=== PATIENT | female | born 1970 | race Caucasian/White ===

== ENCOUNTER 2017-05-04 02:31 | Emergency (ER) | payer BC ==
[~2017-05-04] VITALS: Ht 162.6 cm; Wt 55.9 kg
[2017-05-04 02:38] VITALS: TEMP 98.4
[2017-05-04] MEDS ORDERED: ALLERGY MED (02:42)
[2017-05-04 02:57] LABS: BASO # 0.1 (0.0-0.2); BASO % 1.4 % (0.0-2.0); EOS # 0.3 (0.0-0.7); EOS % 3.8 % (0-4.0); GRAN # 3.3 (1.4-6.5); HEMATOCRIT 42.2 % (37.0-47.0); HEMOGLOBIN 14.1 g/dl (12.5-16.0); LYMPH # 2.4 (1.2-3.4); LYMPH % 36.7 % (20.0-51.0); MEAN CELL VOLUME 89 fl (80.0-100.0); MEAN CORPUSCULAR HEMOGLOBIN 30 pg (27.0-31.0); MEAN CORPUSCULAR HGB CONC 33 g/dl (33.0-37.0); MEAN PLATELET VOLUME 13.1 fl (7.4-10.4); MONO # 0.5 (0.1-0.6); MONO % 7.9 % (1.7-9.3); PLATELET COUNT 106 K/mm3 (130-400); RED BLOOD COUNT 4.76 M/mm3 (4.10-5.30); REDCELL DISTRIBUTION WIDTH-CV 12.6 % (11.5-14.5); WHITE BLOOD COUNT 6.6 K/mm3 (4.8-10.8)
[2017-05-04 03:04] LABS: ANION GAP 10 mmol/L (7-16); BLOOD UREA NITROGEN 16 mg/dL (7-17); CALCIUM 9.2 mg/dL (8.4-10.2); CARBON DIOXIDE 25 mmol/L (22-30); CHLORIDE 103 mmol/L (98-107); CREATININE, serum 0.89 mg/dL (0.52-1.25); GLUCOSE 83 mg/dL (74-106); POTASSIUM 3.5 mmol/L (3.4-5.0); SODIUM 139 mmol/L (137-145)
[2017-05-04 03:19] LABS: TROPONIN-I < 0.012 ng/mL (0.000-0.034)
[2017-05-04 03:45] VITALS: BP 127/81; PULSE 68
== END 2017-05-04 03:45 | disposition home or self-care (01) ==
LOC: COL.ER 02:31
PROVIDERS: Emergency Medicine
DX: R00.2 Palpitations (principal); R20.0 Anesthesia of skin; R42 Dizziness and giddiness; F41.9 Anxiety disorder, unspecified

== ENCOUNTER 2021-04-30 04:59 | Emergency (ER) | payer BC ==
[~2021-04-30] VITALS: Ht 162.6 cm; Wt 54.5 kg
[~2021-04-30 04:59] MED LIST: ALLERGY MED
[2021-04-30 05:01] VITALS: TEMP 98.1
[2021-04-30 05:23] LABS: BASO # 0.1 (0.0-0.2); BASO % 1.3 % (0.0-2.0); EOS # 0.3 (0.0-0.7); EOS % 5.1 % (0-4.0); GRAN # 2.6 (1.4-6.5); GRAN % 47.9 % (42.2-75.2); HEMATOCRIT 46.1 % (37.0-47.0); HEMOGLOBIN 14.8 g/dl (12.5-16.0); LYMPH # 1.9 (1.2-3.4); LYMPH % 35.3 % (20.0-51.0); MEAN CELL VOLUME 92 fl (80.0-100.0); MEAN CORPUSCULAR HEMOGLOBIN 29 pg (27.0-31.0); MEAN CORPUSCULAR HGB CONC 32 g/dl (33.0-37.0); MEAN PLATELET VOLUME 12.9 fl (7.4-10.4); MONO # 0.6 (0.1-0.6); MONO % 10.2 % (1.7-9.3); PLATELET COUNT 122 K/mm3 (130-400); RED BLOOD COUNT 5.03 M/mm3 (4.10-5.30); REDCELL DISTRIBUTION WIDTH-CV 12.9 % (11.5-14.5)
[2021-04-30 06:30] LABS: ERYTHROCYTE SEDIMENTATION RATE 1 mm/hr (0-30)
[2021-04-30] MEDS ORDERED: VALTREX1 GM PO (06:35)
[2021-04-30] MEDS ORDERED: PREDNISONE20 MG PO (06:35)
[2021-04-30 06:45] LABS: ALANINE AMINOTRANSFERASE 10 U/L (4-34); ALBUMIN 3.6 gm/dL (3.5-5.0); ALKALINE PHOSPHATASE 50 U/L (50-136); ANION GAP 4 mmol/L (7-16); AST,SGOT 22 U/L (15-37); BILIRUBIN,TOTAL 0.3 mg/dL (0.0-1.0); BLOOD UREA NITROGEN 22 mg/dL (7-17); C-REACTIVE PROTEIN < 0.5 mg/dL (0.0-0.9); CALCIUM 8.7 mg/dL (8.4-10.2); CARBON DIOXIDE 29 mmol/L (22-30); CHLORIDE 104 mmol/L (98-107); CREATININE, serum 0.81 (0.52-1.25); GLUCOSE 82 mg/dL (74-106); POTASSIUM 3.9 mmol/L (3.4-5.0); SODIUM 137 mmol/L (137-145); TOTAL PROTEIN 6.1 gm/dL (6.4-8.2)
[2021-04-30 07:11] VITALS: BP 109/77; PULSE 61
== END 2021-04-30 07:11 | disposition home or self-care (01) ==
LOC: COL.ER 04:59
PROVIDERS: Emergency Medicine
DX: G51.0 Bell's palsy (principal)
CPT/HCPCS: J7030; J7512